=== PATIENT | female | born 1930 | race Caucasian/White ===

== ENCOUNTER 2017-10-21 07:26 | Inpatient (IN) | payer MEDICARE, BC ==
[2017-10-21 08:29] LABS: #Basophils 0.1 thou/uL (0.0-0.2); #Eosinphils 0.2 thou/uL (0.0-0.7); #Lymphocytes 1.4 thou/uL (1.20-3.40); #Monocytes 0.5 thou/uL (0.11-0.59); #Neutrophils 6.5 thou/uL (1.40-6.50); %Basophils 0.9 % (0.0-1.0); %Eosinophils 2.2 % (0.0-10.0); %Lymphocytes 16.1 % (21.0-51.0); Hematocrit 40.1 % (36.0-47.0); Mean Platelet Volume 7.3 fL (7.4-10.4); Red Blood Cell (RBC) Count 4.57 mill/uL (4.20-5.40); White Blood Cell (WBC) Count 8.7 thou/uL (4.8-10.8)
[2017-10-21 08:36] LABS: ALT (SGPT) 30 U/L (8-55); AST (SGOT) 40 U/L (5-34); Alkaline Phosphatase 86 U/L (40-150); Anion Gap 12 mmol/L (10-20); BUN (Urea Nitrogen) 17 mg/dL (9.8-20.1); Bilirubin, Total 0.6 mg/dL (0.2-1.2); Calc. Creatinine Clearance 0 mL/min (70-130); Calcium 9.4 mg/dL (7.8-10.44); Carbon Dioxide 25 mmol/L (23-31); Chloride 103 mmol/L (98-107); Estimated GFR-MDRD 78; PTT 30.9 SEC (22.9-36.1); Prothrombin Time 13.5 SEC (12.0-14.7)
[2017-10-21] MEDS ORDERED: Morphine 4 MG/ML VIAL ONE (08:53)
--- NOTE | 2017-10-21 09:00 | RAD ---
SINGLE VIEW OF THE CHEST: Comparison: 06-05-15 History: Fall this morning with right hip pain. FINDINGS: Single view of the chest shows a cardiomediastinal silhouette which is upper limits of normal in size with atherosclerotic calcifications seen in the aorta. There is no evidence of consolidation, mass, or pleural effusions. Degenerative changes are seen in the spine. IMPRESSION: 1. No evidence of acute cardiopulmonary disease. 2. Atherosclerotic disease. POS: JAYSHREE
--- NOTE | 2017-10-21 09:03 | RAD ---
TWO VIEWS RIGHT HIP: Comparison: Pelvic radiograph 10-21-17 History: Fall with right hip pain. FINDINGS: Two views right hip shows lucency through the intertrochanteric region of the right femur which may r epresent a nondisplaced intertrochanteric femur fracture. No degenerative change is seen in the right hip. IMPRESSION: Likely nondisplaced intertrochanteric right femur fracture. POS: JAYSHREE
[2017-10-21] MEDS ORDERED: Fentanyl 100 MCG/2 ML VIAL ONE ×3 (09:35→16:33)
[2017-10-21] MEDS ORDERED: Ondansetron HCl/PF 4 MG/2 ML Vial ONE ×2 (10:35→14:53)
[2017-10-21] MEDS ORDERED: Dextrose 50% Abboject 50 ML SYRINGE SLOW IVP PRN (11:43)
[2017-10-21] MEDS ORDERED: Ondansetron HCl/PF 4 MG/2 ML Vial IVP PRN ×2 (11:43→15:37)
[2017-10-21] MEDS ORDERED: hydrALAZINE 20 MG/ML VIAL SLOW IVP PRN (11:43)
[2017-10-21] MEDS ORDERED: Dextrose 5% in Water 1,000 ML IV PRN (11:43)
[2017-10-21] MEDS: Acetaminophen 1,000 MG in Premix Bag 1 BAG IVPB SCH ×2 (11:52→17:54)
[2017-10-21] MEDS: Sodium Chloride 0.9% 1,000 ML IV SCH ×2 (11:52→22:12)
--- NOTE | 2017-10-21 11:55 | HP ---
DATE OF CONSULTATION: 10/21/2017 ATTENDING: Raheem Bethea DO CONSULTING PHYSICIAN: Dr. Ta, Orthopedics. HISTORY OF PRESENT ILLNESS: Ms. Evans is a pleasant 87-year-old female who was transported to the ED this a.m. status post ground level fall. She reports that she was getting up to go to the bathroom and when attempting to get out of bed, she had a fall. She states that she has had right hip pain since the fall and has been unable to ambulate. Pain is somewhat relieved by morphine. Pain is exacerbated by movement. Currently, pain is rated at 8/10. Clinical and diagnostic evaluation in the ED identified right hip fracture. There is no nausea, vomiting, fever, chills, uncontrolled bleeding, or neurovascular compromise. PAST MEDICAL HISTORY: Hyperlipidemia, high blood pressure. PAST SURGICAL HISTORY: Hysterectomy. SOCIAL HISTORY: The patient denies alcohol, drug or tobacco use. She lives at home alone and is active, taking care of her household. HOME MEDICATIONS: 1. Tylenol with codeine. 2. Amlodipine 5 mg p.o. daily. 3. Nexium 40 mg p.o. daily. 4. Crestor 10 mg p.o. daily. 5. Tramadol 1-2 tabs 50 mg p.o. q.6 h. as needed. REVIEW OF SYSTEMS: CONSTITUTIONAL: Negative for fever, chills, weight loss, or weakness. HEENT: Negative. Denies changes. PULMONARY: Negative. Denies cough or shortness of breath. CARDIOVASCULAR: Negative. Denies chest pain or palpitations. GI: Negative. Denies abdominal pain, nausea, vomiting, diarrhea or constipation. MUSCULOSKELETAL: Reports pain in the right hip with movement. Denies neurovascular compromise. SKIN: Negative. Denies skin changes. NEUROLOGIC: Negative. Denies headache, seizures or sensory changes. PHYSICAL EXAMINATION: VITAL SIGNS: Blood pressure 131/51, pulse 62, respirations 18, O2 sat 92% on room air, temperature 97.6. Pain 8/10. GENERAL: An 87-year-old female, in no acute distress. HEENT: Normocephalic, atraumatic. LUNGS: Bilateral breath sounds clear to auscultation. No respiratory distress. CARDIOVASCULAR: Regular rate and rhythm. S1, S2. ABDOMEN: Soft, nontender, nondistended. EXTREMITIES: Pain with palpation to right hip. NEUROLOGIC: Cap refill brisk. Neurovascularly intact. LABORATORY DATA: White blood cells 8.7, hemoglobin 13.1, hematocrit 40.1, platelets 238. Chemistry: Sodium 136, potassium 3.7, chloride 103, carbon dioxide 25, anion gap 12, BUN 17, creatinine 0.71, glucose 148. Diagnostic imaging right intertrochanteric femur fracture. DIAGNOSTIC IMAGING: Right intertrochanteric hip fracture ASSESSMENT: 1. An 87-year-old female status post ground level fall. 2. Right intertrochanteric hip fracture. PLAN: 1. Admit to surgical floor by trauma services. 2. Consult to Dr. Ta, Orthopedics, I have discussed this with PA for Orthopedics. They will take patient to OR for stabilization of fracture later today. 3. N.p.o. IV fluids. IV analgesia. 4. Case management consult for discharge planning. Assessment and plan of care were discussed with the patient and her adult children. They are in agreement with assessment and recommendations. The patient was reviewed with Dr. Bethea, who agrees with assessment, and plan of care. [facility]
--- NOTE | 2017-10-21 13:00 | CON ---
DATE OF CONSULTATION: 10/21/2017 REQUESTING PHYSICIAN: Dr. Raheem Bethea CONSULTING PHYSICIAN: Dr. Trung Ta CHIEF COMPLAINT: Right hip intertrochanteric fracture. HISTORY OF PRESENT ILLNESS: Nikki is a very pleasant 87-year-old white female who was brought to [facility] via EMS after she fell at home. Plain radiographs obtained by Dr. Fausto zuniga in the emergency room demonstrated a right intertrochanteric varus angulated fracture. She is pat ng admitted by the Trauma Team and our service was consulted for evaluation and definitive management of this problem. PAST MEDICAL HISTORY: Significant for hypertension, hyperlipidemia. PAST SURGICAL HISTORY: She had an open reduction internal fixation of the ankle approximately 3 year s ago and the spine fracture treated closed. PHYSICAL EXAMINATION: GENERAL: This is a well-nourished, well-developed female appearing her stated age, in no apparent di stress or discomfort. VITAL SIGNS: Blood pressure is 144/71, respiration rate 18, O2 saturation is 95% on 2 liters of oxyg en, pulse 68, temperature 97.6. NEUROLOGIC: She is alert and oriented to person, place, time, and situation, responsive, and appropr iate with examiner, but is a little hard of hearing. She is grossly nonfocal. EXTREMITIES: Visual inspection of the right lower extremity demonstrates minimal shortening, but no significant gross deformity. There is not a severe amount of external rotation present. She is neur ovascularly intact in the right lower extremity. IMAGING STUDIES: Two views right hip and AP pelvis demonstrates a varus angulated, shortened slightl y intertrochanteric fracture 2 part in nature. IMPRESSION: 1. Two-part varus angulated right hip intertrochanteric fracture. 2. Advanced age. 3. Hypertension. 4. Hyperlipidemia. PLAN: 1. The risks, benefits, options, alternatives, and rationale for proceeding with closed versus open reduction with internal fixation has been explained in great detail with the patient and her family w donnie accompanies her. All questions were answered. No guarantee of outcome has been stated or implied . 2. Please see orders.
[2017-10-21] MEDS ORDERED: Clindamycin/D5W 900 mg/50 ml Premix Bag ONE (14:08)
[2017-10-21] MEDS ORDERED: Levofloxacin 500 mg/D5W 100 ml Premix Bag ONE (14:08)
[2017-10-21] MEDS ORDERED: Lidocaine 1% PF 5 ML VIAL ONE (14:53)
[2017-10-21] MEDS ORDERED: Propofol 200 MG/20 ML VIAL ONE (14:53)
[2017-10-21] MEDS ORDERED: Glycopyrrolate 0.2 MG/ML 5 ML SYRINGE ONE (14:53)
[2017-10-21] MEDS ORDERED: ePHEDrine/0.9% NaCl/PF SYRINGE 50 mg/10 ml ONE (14:53)
[2017-10-21] MEDS ORDERED: Promethazine HCl 25 MG/ML VIAL SLOW IVP PRN (15:37)
--- NOTE | 2017-10-21 16:51 | RAD ---
TWO INTRAOPERATIVE FLUOROSCOPIC IMAGES RIGHT HIP: Date: 10-21-17 History: Internal fixation of proximal femur. Comparison: 10-21-17 FINDINGS: Two intraoperative fluoroscopic images from the OR are submitted for interpretation. There is an intr amedullary dejuan within dynamical compression screw and interlocking screw transfixing the intertrochan teric right hip fracture. No hardware complication is seen. IMPRESSION: Internal fixation of right intertrochanteric hip fracture. POS: JAYSHREE
--- NOTE | 2017-10-21 17:56 | OP ---
DATE OF PROCEDURE: 10/21/2017 OPERATION: Right femur intramedullary nail. PREOPERATIVE DIAGNOSIS: Right intertrochanteric femur fracture. POSTOPERATIVE DIAGNOSIS: Right intertrochanteric femur fracture. COMPLICATIONS: None. ESTIMATED BLOOD LOSS: Minimal. SURGEON: Trung Ta M.D. ANESTHESIA: General. CUFFER: Shilo Laureano PA-C IMPLANTS: Synthes short trochanteric nail, 11 mm with helical blade. INDICATIONS: Ms. Evans is an 87-year-old female who has fallen. She fractured her right hip. She was indicated for intramedullary nail fixation of the intertrochanteric femur. She has elected to pr oceed with the operation. Risks have been reviewed with her and her family. DESCRIPTION OF PROCEDURE: Ms. Evans was identified in the preoperative holding area. Her correct e xtremity was marked. She was carried to the operating room. She was positioned supine. General ane sthesia was induced. A multidisciplinary timeout was performed. The right lower extremity was prepp ed and draped in sterile fashion. We began the procedure with a small incision proximal to the trochanter. We then inserted the guidew philippe at the tip of the trochanter distally. We guided this with x-ray. We then opened the proximal f emur with our reamer. Next, we inserted our intramedullary nail device. At this point, we placed a guidewire in the centered position of the femoral head. We then overdrilled this and impacted the he lical blade. Finally, we placed a distal cross lock screw. This concluded the operation. We took f inal images. We thoroughly irrigated the wounds and closed appropriately. A sterile dressing was ap plied. The patient was taken to the recovery room in good condition without complication.
--- NOTE | 2017-10-21 18:19 | RAD ---
SINGLE VIEW OF THE PELVIS: History: Fall with right hip pain. FINDINGS: Single view of the pelvis shows lucency extending to the right intertrochanteric region of the femur which likely represents a nondisplaced fracture. No degenerative change is seen in either hip. IMPRESSION: Intertrochanteric right femur fracture. POS: JAYSHREE
[2017-10-21] MEDS: Famotidine/PF 20 mg/2ml Vial SLOW IVP SCH (22:00)
[2017-10-21] MEDS: Vancomycin HCl 1 GM in Premix Bag 1 BAG IVPB SCH (22:00)
[2017-10-21] MEDS: Mupirocin 2% Ointment 22 GM Tube TOP SCH (22:00)
[2017-10-21] MEDS ORDERED: traMADol HCl 50 MG TAB PO PRN (22:10)
[2017-10-21] MEDS: Clindamycin/D5W 900 MG in Premix Bag 1 BAG IVPB SCH (22:18)
[2017-10-21] MEDS ORDERED: Acetaminophen 500 MG TAB PO SCH (22:30)
[2017-10-21] MEDS ORDERED: Gabapentin 100 MG CAP PO SCH (22:30)
[2017-10-21] MEDS: Cyclobenzaprine 10 MG TAB PO PRN (22:30)
[2017-10-21] MEDS ORDERED: Ketorolac Tromethamine 30 MG/ML VIAL IVP SCH (23:00)
[2017-10-22] MEDS: Sodium Chloride 0.9% 1,000 ML IV SCH ×2 (03:19→15:00)
[2017-10-22] MEDS: Acetaminophen 500 MG TAB PO SCH ×4 (04:15→22:25)
[2017-10-22] MEDS: Ketorolac Tromethamine 30 MG/ML VIAL IVP SCH ×4 (04:16→22:26)
[2017-10-22] MEDS: traMADol HCl 50 MG TAB PO PRN ×2 (04:17→13:34)
[2017-10-22] MEDS: Clindamycin/D5W 900 MG in Premix Bag 1 BAG IVPB SCH (05:42)
[2017-10-22 05:48] LABS: #Lymphocytes 0.8 thou/uL (1.20-3.40); #Monocytes 0.6 thou/uL (0.11-0.59); #Neutrophils 3.8 thou/uL (1.40-6.50); %Basophils 0.2 % (0.0-1.0); %Eosinophils 0.9 % (0.0-10.0); %Lymphocytes 15.9 % (21.0-51.0); Hematocrit 32.1 % (36.0-47.0); Mean Platelet Volume 7.6 fL (7.4-10.4); Red Blood Cell (RBC) Count 3.61 mill/uL (4.20-5.40); White Blood Cell (WBC) Count 5.3 thou/uL (4.8-10.8)
[2017-10-22] MEDS ORDERED: FLU VACC TS2017-18 (>65YR) 0.5 ML SYRINGE IM ONE (09:00)
[2017-10-22] MEDS: Famotidine/PF 20 mg/2ml Vial SLOW IVP SCH ×2 (09:27→21:27)
[2017-10-22] MEDS: Mupirocin 2% Ointment 22 GM Tube TOP SCH ×2 (09:28→21:45)
[2017-10-22] MEDS: Gabapentin 100 MG CAP PO SCH ×3 (09:28→21:27)
[2017-10-22] MEDS: Vancomycin HCl 1 GM in Premix Bag 1 BAG IVPB SCH (09:30)
--- NOTE | 2017-10-22 11:24 | PRG-2 ---
DATE OF SERVICE: 10/22/2017 SUBJECTIVE: Nikki Evans is an 87-year-old woman status post ground level fall and right intertroch anteric femur fracture who is postoperative day #2 for intramedullary nail fixation of an intertrocha nteric femur. The patient tolerated the procedure well yesterday. She had no acute events overnight . She states that her pain is well controlled this morning. PHYSICAL EXAMINATION: VITAL SIGNS: Temperature 98.5, pulse 70, respiratory rate 14, O2 sat 96%, blood pressure 119/96. GENERAL: An 87-year-old female in no acute distress. HEENT: Normocephalic, atraumatic. LUNGS: Clear to auscultation bilaterally. Normal respiratory effort. CARDIOVASCULAR: Regular rate and rhythm, S1 and S2. ABDOMEN: Soft, nontender, nondistended. EXTREMITIES: Pain with palpation of the right hip. NEUROLOGIC: Neurovascularly intact x4. LABORATORY DATA: White blood cell count 5.3, hemoglobin 10.8, hematocrit 32.1, platelets 166. ASSESSMENT: 1. An 87-year-old woman status post ground level fall. 2. Right intertrochanteric hip fracture. PLAN: Rehab screen ordered for today and case management on board for discharge planning. Continue pain management, switch to p.o. analgesia. Continue deep venous thrombosis and gastritis prophylaxis . No other change in management at this time. Assessment and plan was discussed with attending trauma surgeon, Dr. Boateng, on morning rounds.
[2017-10-22] MEDS: Enoxaparin Sodium 40 MG/0.4 ML SYRINGE SC SCH (21:27)
[2017-10-23] MEDS: Acetaminophen 500 MG TAB PO SCH ×3 (05:58→18:20)
[2017-10-23] MEDS: Ketorolac Tromethamine 30 MG/ML VIAL IVP SCH (05:59)
[2017-10-23] MEDS: Amlodipine 10 MG TAB PO SCH (09:27)
[2017-10-23] MEDS: Gabapentin 100 MG CAP PO SCH ×3 (09:27→20:24)
[2017-10-23] MEDS: Famotidine/PF 20 mg/2ml Vial SLOW IVP SCH (09:27)
[2017-10-23] MEDS: Mupirocin 2% Ointment 22 GM Tube TOP SCH ×2 (09:28→20:29)
--- NOTE | 2017-10-23 15:22 | PRG ---
DATE OF SERVICE: 10/23/2017 SUBJECTIVE: Nikki Evans is an 87-year-old woman status post ground level fall and right intertroch anteric femur fracture. She is postop day #2 from ORIF of femur fracture. She has had no postoperat indio complications. She has been mobilizing with physical and occupational therapy. OBJECTIVE: VITAL SIGNS: Temperature 98.2, pulse 80, respirations 20, O2 sat 95% on room air, and blood pressure 153/70. GENERAL: An 87-year-old female in no acute distress. Pain well controlled. HEENT: Normocephalic, atraumatic. LUNGS: Bilateral breath sounds, clear to auscultation. No respiratory distress. CARDIOVASCULAR: Regular rate and rhythm. Heart sounds normal. ABDOMEN: Soft, nontender, nondistended. EXTREMITIES: Moves all extremities well. Neurovascularly intact. Cap refill brisk. Pain with move ment of the right hip. Pain is well controlled. ASSESSMENT: 1. An 87-year-old woman status post ground level fall. 2. Right intertrochanteric hip fracture. 3. Status post open reduction and internal fixation right hip fracture. PLAN: 1. Continue current care as ordered. 2. Continue physical and occupational therapy for mobilization. 3. Case management consult for discharge planning. The patient expressed her wishes to go to [facility] in [place], [place]. 4. Deep venous thrombosis prophylaxis, Lovenox 40 mg once daily. 5. The patient was discussed and reviewed with the attending trauma surgeon, Dr. Sanders.
[2017-10-23] MEDS: Cyclobenzaprine 10 MG TAB PO PRN (20:25)
[2017-10-23] MEDS: Enoxaparin Sodium 40 MG/0.4 ML SYRINGE SC SCH (20:35)
[2017-10-23] MEDS ORDERED: hydrOXYzine 10 MG TAB PO PRN (20:58)
[2017-10-23] MEDS: Famotidine 20 MG TAB PO SCH (21:21)
[2017-10-23] MEDS ORDERED: hydrOXYzine 25 MG TAB PO PRN (21:31)
[2017-10-24] MEDS: Acetaminophen 500 MG TAB PO SCH ×4 (00:31→17:03)
[2017-10-24] MEDS ORDERED: Ondansetron ODT 4 MG TAB PO PRN (03:26)
[2017-10-24] MEDS: Gabapentin 100 MG CAP PO SCH ×3 (08:47→21:28)
[2017-10-24] MEDS: Mupirocin 2% Ointment 22 GM Tube TOP SCH ×2 (08:47→21:05)
[2017-10-24] MEDS: Famotidine 20 MG TAB PO SCH ×2 (08:47→21:28)
[2017-10-24] MEDS: Amlodipine 10 MG TAB PO SCH (08:47)
--- NOTE | 2017-10-24 12:44 | PRG ---
DATE OF SERVICE: 10/24/2017 This is Cheryl Omalley, Nurse Practitioner, dictating daily progress note for Dr. Sanders SUBJECTIVE: Ms. Evans is an 87-year-old female status post ground-level fall and right intertrochanteric femur fracture. She is postop day #3 from ORIF. She has had no postoperative complications. She has been mobilizing with physical and occupational therapy. OBJECTIVE: VITAL SIGNS: Temperature 98.7, pulse 89, respirations 14, O2 sat 92%, blood pressure 150/76. GENERAL: An 87-year-old female in no acute distress. HEENT: Normocephalic, atraumatic. LUNGS: Bilateral breath sounds, clear to auscultation. No respiratory distress. CARDIOVASCULAR: Regular rate and rhythm. Heart sounds normal. ABDOMEN: Soft, nontender, nondistended. EXTREMITIES: Moves all extremities well. Neurovascularly intact. Cap refill brisk. ASSESSMENT: 1. An 87-year-old female status post ground-level fall. 2. Right intertrochanteric hip fracture. 3. Status post open reduction internal fixation, right hip fracture. PLAN: 1. Continue physical and occupational therapy for mobilization. 2. Lovenox 40 mg once daily for DVT prophylaxis. The patient will need Lovenox x3 weeks per discussion with Dr. Carrasco. 3. Case management following for discharge planning. Plan for patient to discharge to SNF in [place] on 10/26/2017. Patient was reviewed with Dr. Sanders, attending surgeon, who agrees with the assessment and plan. [facility]
[2017-10-24] MEDS: Ibuprofen 600 MG TAB PO SCH (15:01)
[2017-10-24] MEDS: Enoxaparin Sodium 40 MG/0.4 ML SYRINGE SC SCH (21:05)
[2017-10-25] MEDS: Acetaminophen 500 MG TAB PO SCH ×4 (01:35→17:57)
[2017-10-25] MEDS: Ibuprofen 600 MG TAB PO SCH ×3 (01:35→15:05)
[2017-10-25] MEDS: Amlodipine 10 MG TAB PO SCH (08:57)
[2017-10-25] MEDS: Mupirocin 2% Ointment 22 GM Tube TOP SCH ×2 (08:57→20:43)
[2017-10-25] MEDS: Gabapentin 100 MG CAP PO SCH ×3 (08:57→20:42)
[2017-10-25] MEDS: Famotidine 20 MG TAB PO SCH ×2 (08:57→20:42)
--- NOTE | 2017-10-25 13:45 | PRG ---
DATE OF SERVICE: 10/25/2017 ATTENDING PHYSICIAN: Dr. Sanders. SUBJECTIVE: Ms. Evans is an 87-year-old female status post ground level fall and right intertrochanteric femur fracture. She is postop day #4 from ORIF. She has had no postoperative complications. She has been mobilizing with physical and occupational therapy. She reports today that pain is much more controlled. OBJECTIVE: VITAL SIGNS: Temperature 98.5, pulse 83, respirations 18, O2 sat 93% on 1 liter O2, blood pressure 151/77. GENERAL: An 87-year-old female in no acute distress, sitting up in bed, eating breakfast. HEENT: Normocephalic, atraumatic. LUNGS: Bilateral breath sounds clear to auscultation. No respiratory distress. CARDIOVASCULAR: Regular rate and rhythm. Heart sounds normal. ABDOMEN: Soft, nontender, and nondistended. EXTREMITIES: Moves all extremities well. Neurovascularly intact. Cap refill is brisk. ASSESSMENT: 1. An 87-year-old female status post ground level fall. 2. Traumatic intertrochanteric hip fracture. 3. Status post open reduction and internal fixation of right hip fracture. PLAN: 1. Continue physical and occupational therapies for mobilization. 2. Continue Lovenox 40 mg once daily for DVT prophylaxis. The patient will need Lovenox for 3 weeks [address] discussion [address] Dr. Carrasco. 3. Case management following for discharge planning. Plan to discharge to SNF at [place] on Thursday10/26/2017, pending acceptance. Patient was reviewed with Dr. Sanders, who agrees with the assessment and plan. [facility]
--- NOTE | 2017-10-25 13:57 | PRG ---
DATE OF SERVICE: 10/25/2017 An 87-year-old male status post open reduction internal fixation, right intertrochanteric femur fract ure. The patient's vital signs remained stable. Agree with exam per nurse woodrow Frank He is on Lovenox for DVT prophylaxis, awaiting placement post-ORIF hip fracture.
[2017-10-25] MEDS ORDERED: Polyethylene Glycol 3350 17 GM Packet PO SCH (18:30)
[2017-10-25] MEDS ORDERED: Bisacodyl 10 MG SUPP PR SCH (19:30)
[2017-10-25] MEDS: Senokot S 8.6-50 MG TAB PO SCH (20:42)
[2017-10-25] MEDS: Enoxaparin Sodium 40 MG/0.4 ML SYRINGE SC SCH (20:43)
[2017-10-26] MEDS: Ibuprofen 600 MG TAB PO SCH ×2 (00:13→06:00)
[2017-10-26] MEDS: Acetaminophen 500 MG TAB PO SCH ×3 (00:13→11:47)
[2017-10-26] MEDS ORDERED: Polyethylene Glycol 3350 17 GM Packet PO SCH (09:00)
[2017-10-26] MEDS: Amlodipine 10 MG TAB PO SCH (09:55)
[2017-10-26] MEDS: Gabapentin 100 MG CAP PO SCH (09:55)
[2017-10-26] MEDS: Famotidine 20 MG TAB PO SCH (09:56)
[2017-10-26] MEDS: Mupirocin 2% Ointment 22 GM Tube TOP SCH (10:00)
[2017-10-26] MEDS: Senokot S 8.6-50 MG TAB PO SCH (10:23)
[2017-10-26 12:36] VITALS: BP 138/69; TEMP 98.6
--- NOTE | 2017-10-27 00:20 | DIS ---
DATE OF ADMISSION: 10/21/2017 DATE OF DISCHARGE: 10/26/2017 ADMITTING PHYSICIAN: Raheem Bethea DO CONSULTING PHYSICIAN: Dr. Ta, Orthopedics. CHIEF COMPLAINT: Ground level fall with hip pain. HOSPITAL DIAGNOSIS: Right intertrochanteric hip fracture. DATE OF PROCEDURE: 10/21/2017 OPERATION: Right femur intramedullary nail. SURGEON: Trung Ta M.D. PATIENT'S DISCHARGE CONDITION: Stable to senior living facility. FOLLOWUP: The patient is to follow up with Dr. Carrasco. She is to call for appointment. BRIEF SUMMARY OF HOSPITALIZATION: Ms. Evans is an 87-year-old female who was transported to the ED on 10/21/2017 after a ground level fall. She was seen in the ER, where a right intertrochanteric hip fracture was identified. She was admitted to the hospital by Trauma Services. Orthopedics was cons ulted. She was taken to the operating room by Dr. Ta for ORIF. She had no postoperative comp lications. She was able to mobilize with physical and occupational therapy who recommended rehabilit ation at discharge. Case management was consulted and referrals were made. The patient was accepted to [facility] in [place], [place]. She was discharged on 10/26/2017 with disc harge instructions and followup information. The patient was reviewed with Dr. Boateng, attending surgeon, who agreed with the assessment and plan for discharge.
== END 2017-10-26 14:15 | DRG 482 ==
LOC: ERS 07:26 → SURG B 10:58
PROVIDERS: ADMIT Surgery; ATTEND Surgery
PROC: 0QS606Z Reposition Right Upper Femur with Intramedullary Internal Fixation Device, Open Approach (ICD-10-PCS; principal; 2017-10-21)
DX: S72.141A Displaced intertrochanteric fracture of right femur, initial encounter for closed fracture (principal); I10 Essential (primary) hypertension; E78.5 Hyperlipidemia, unspecified; W06.XXXA Fall from bed, initial encounter; Y92.003 Bedroom of unspecified non-institutional (private) residence as the place of occurrence of the external cause
CPT/HCPCS: 36415; 36416; 51702; 71010; 72170; 76001; 80053; 85025; 85610; 85730; 86850; 86900; 86901; 96374; 96375; C1713; G0390; G8978-GP-CJ; G8979-GP-CH; G8987-GO-CK; G8988-GO-CI; J0131; J1650; J1885; J1956; J2001; J2270; J2405; J2704; J3010; J3370; J3490; Q0162; S0028

== ENCOUNTER 2021-07-03 10:05 | Inpatient (IN) | payer MEDICARE, BC ==
[~2021-07-03 10:05] MED LIST: Iopamidol-370 76% 500 ML 1 ML ONE
[2021-07-03 11:08] LABS: #Lymphocytes 1.1 thou/uL (1.20-3.40); #Monocytes 0.7 thou/uL (0.11-0.59); #Neutrophils 11.4 thou/uL (1.40-6.50); %Basophils 0.1 % (0.0-1.0); %Eosinophils 0.1 % (0.0-10.0); %Lymphocytes 8.5 % (21.0-51.0); %Monocytes 5.5 % (0.0-10.0); %Neutrophils 85.7 % (42.0-75.0); Hemoglobin 12.8 g/dL (12.0-16.0); Mean Corpuscular HGB CONC 33.5 g/dL (32.0-36.0); Mean Corpuscular Hemoglobin 28.1 pg (27.0-31.0); Mean Corpuscular Volume 83.7 fL (78.0-98.0); Mean Platelet Volume 8.5 fL (7.4-10.4); Platelet Count 203 thou/uL (130-400); RBC Distribution Width 13.4 % (11.5-14.5); Red Blood Cell (RBC) Count 4.55 mill/uL (4.20-5.40); White Blood Cell (WBC) Count 13.4 thou/uL (4.8-10.8)
[2021-07-03] MEDS ORDERED: Ondansetron PF 4 MG/2 ML Vial ONE ×2 (11:12→11:18)
[2021-07-03] MEDS ORDERED: cefTRIAXone\\ROCEPHIN 2 GM VIAL ONE (11:23)
[2021-07-03 12:14] LABS: Bacteria/HPF None Seen HPF (None Seen); Bilirubin Negative (Negative); Blood, Urine Negative (Negative); Clarity Clear (Clear); Glucose, Urine (Dipstick) Normal (Negative); Ketone, Urine Trace mg/dL (Negative); Leukocyte 75 Leu/uL (Negative); Nitrite Negative (Negative); Protein, Urine (Dipstick) Negative (Neg-Trace); RBC/HPF 0-3 HPF (0-3); Specific Gravity, Urine 1.017 (1.002-1.036); Squamous Epithelial 0-3 HPF (0-3); Urobilinogen Normal mg/dL (Less than 2); WBC/HPF 0-3 HPF (0-3)
[2021-07-03 12:18] LABS: ALT (SGPT) 21 U/L (8-55); AST (SGOT) 23 U/L (5-34); Albumin 3.7 g/dL (3.4-4.8); Alkaline Phosphatase 154 U/L (40-110); Anion Gap 16 mmol/L (10-20); BUN (Urea Nitrogen) 11 mg/dL (9.8-20.1); Bilirubin, Total 0.9 mg/dL (0.2-1.2); Calc. Creatinine Clearance 0 mL/min (70-130); Calcium 8.5 mg/dL (7.8-10.44); Carbon Dioxide 19 mmol/L (23-31); Chloride 108 mmol/L (98-107); Globulin 2.9 g/dL (2.4-3.5); Glucose 110 mg/dL (83-110); Protein, Total 6.6 g/dL (5.8-8.1); Sodium 139 mmol/L (136-145)
[2021-07-03 13:10] LABS: SARS-CoV-2 NAA Rapid Test Not Detected (NotDetected)
[2021-07-03] MEDS ORDERED: Benzonatate 100 MG CAP PO PRN (13:15)
[2021-07-03] MEDS ORDERED: Azithromycin 500 MG VIAL ONE (13:19)
[2021-07-03] MEDS ORDERED: Ondansetron ODT 4 MG TAB PO PRN (13:20)
[2021-07-03] MEDS ORDERED: Loperamide HCl 2 MG CAP PO PRN (13:20)
[2021-07-03 15:23] LABS: Magnesium 1.4 mg/dL (1.6-2.6)
[2021-07-03] MEDS ORDERED: Magnesium Sulfate 4 GM in Sodium Chloride 0.9% 250 ML 250 ML IVPB SCH (16:00)
[2021-07-03 16:13] LABS: Legionella Urinary Ag Negative (Negative); Strep pneumo Urine Ag NEGATIVE (NEGATIVE)
[2021-07-03] MEDS: Sodium Chloride 0.9% 1,000 ML IV SCH (19:40)
[2021-07-03 19:53] VITALS: BMI 27.1
[2021-07-03] MEDS: Melatonin 3 MG TAB PO PRN (21:27)
[2021-07-04] MEDS: Sodium Chloride 0.9% 1,000 ML IV SCH ×4 (04:46→20:32)
[2021-07-04 07:23] LABS: #Eosinphils 0.2 thou/uL (0.0-0.7); #Lymphocytes 1.9 thou/uL (1.20-3.40); #Monocytes 0.8 thou/uL (0.11-0.59); #Neutrophils 4.7 thou/uL (1.40-6.50); %Basophils 0.5 % (0.0-1.0); %Eosinophils 2.4 % (0.0-10.0); %Lymphocytes 25.1 % (21.0-51.0); %Monocytes 9.8 % (0.0-10.0); %Neutrophils 62.2 % (42.0-75.0); Hemoglobin 12.2 g/dL (12.0-16.0); Mean Corpuscular Hemoglobin 27.9 pg (27.0-31.0); Mean Corpuscular Volume 84.7 fL (78.0-98.0); Mean Platelet Volume 8.8 fL (7.4-10.4); Platelet Count 212 thou/uL (130-400); RBC Distribution Width 13.4 % (11.5-14.5); Red Blood Cell (RBC) Count 4.36 mill/uL (4.20-5.40); White Blood Cell (WBC) Count 7.6 thou/uL (4.8-10.8)
[2021-07-04 07:34] LABS: Anion Gap 11 mmol/L (10-20); BUN (Urea Nitrogen) 7 mg/dL (9.8-20.1); Calc. Creatinine Clearance 61 mL/min (70-130); Carbon Dioxide 25 mmol/L (23-31); Chloride 107 mmol/L (98-107); Glucose 96 mg/dL (83-110); Magnesium 2.1 mg/dL (1.6-2.6); Potassium 3.5 mmol/L (3.5-5.1); Sodium 139 mmol/L (136-145)
[2021-07-04] MEDS: Enoxaparin Sodium 40 MG/0.4 ML SYRINGE SC SCH (10:08)
[2021-07-04] MEDS: cefTRIAXone\\ROCEPHIN 1 GM in Sodium Chloride 0.9% 100 ML IVPB SCH (13:02)
[2021-07-04] MEDS: Azithromycin 500 MG in Sodium Chloride 0.9% 250 ML 250 ML IVPB SCH (16:57)
[2021-07-04] MEDS: Melatonin 3 MG TAB PO PRN (20:52)
[2021-07-05] MEDS: Sodium Chloride 0.9% 1,000 ML IV SCH ×2 (04:53→16:48)
[2021-07-05 07:07] LABS: #Eosinphils 0.2 thou/uL (0.0-0.7); #Lymphocytes 1.7 thou/uL (1.20-3.40); #Monocytes 0.6 thou/uL (0.11-0.59); #Neutrophils 4.8 thou/uL (1.40-6.50); %Basophils 0.4 % (0.0-1.0); %Eosinophils 2.5 % (0.0-10.0); %Lymphocytes 22.7 % (21.0-51.0); %Monocytes 8.8 % (0.0-10.0); %Neutrophils 65.6 % (42.0-75.0); Mean Corpuscular HGB CONC 32.6 g/dL (32.0-36.0); Mean Corpuscular Hemoglobin 27.7 pg (27.0-31.0); Mean Platelet Volume 9.1 fL (7.4-10.4); Platelet Count 227 thou/uL (130-400); RBC Distribution Width 13.3 % (11.5-14.5); Red Blood Cell (RBC) Count 4.68 mill/uL (4.20-5.40); White Blood Cell (WBC) Count 7.3 thou/uL (4.8-10.8)
[2021-07-05 07:30] LABS: ALT (SGPT) 13 U/L (8-55); AST (SGOT) 12 U/L (5-34); Albumin 3.3 g/dL (3.4-4.8); Alkaline Phosphatase 125 U/L (40-110); Anion Gap 11 mmol/L (10-20); BUN (Urea Nitrogen) 4 mg/dL (9.8-20.1); Bilirubin, Total 0.6 mg/dL (0.2-1.2); Calc. Creatinine Clearance 60 mL/min (70-130); Calcium 8.4 mg/dL (7.8-10.44); Carbon Dioxide 27 mmol/L (23-31); Chloride 106 mmol/L (98-107); Globulin 2.8 g/dL (2.4-3.5); Glucose 92 mg/dL (83-110); Potassium 3.1 mmol/L (3.5-5.1); Protein, Total 6.1 g/dL (5.8-8.1); Sodium 141 mmol/L (136-145)
[2021-07-05] MEDS: cefTRIAXone\\ROCEPHIN 1 GM in Sodium Chloride 0.9% 100 ML IVPB SCH (11:43)
[2021-07-05] MEDS ORDERED: Iothalamate Meglumine 60% 50 ML VIAL FS ONE (12:31)
[2021-07-05] MEDS ORDERED: Indomethacin 50 MG SUPP ONE (12:34)
[2021-07-05] MEDS ORDERED: Fentanyl 100 MCG/2 ML VIAL ONE (13:01)
[2021-07-05] MEDS ORDERED: PROPOFOL 200 MG/20 ML VIAL ONE (13:11)
[2021-07-05] MEDS ORDERED: Esmolol 100 MG/10 ML VIAL ONE (13:11)
[2021-07-05] MEDS ORDERED: Succinylcholine 200 MG/10 ml SYRINGE FS ONE (13:11)
[2021-07-05] MEDS ORDERED: Dexamethasone 20 MG/5 ML VIAL ONE (13:11)
[2021-07-05] MEDS ORDERED: Lidocaine 1% PF 5 ML VIAL ONE (13:11)
[2021-07-05] MEDS ORDERED: ePHEDrine 50 MG/ML VIAL ONE (13:11)
[2021-07-05] MEDS ORDERED: Rocuronium Bromide 10 MG/ML (10ML VIAL) ONE (13:11)
[2021-07-05] MEDS ORDERED: Ondansetron PF 4 MG/2 ML Vial ONE (13:11)
[2021-07-05] MEDS ORDERED: Ondansetron HCl/PF 4 MG/2 ML Vial IVP PRN (13:59)
[2021-07-05] MEDS ORDERED: Promethazine HCl 25 MG/ML VIAL IVPB PRN (13:59)
[2021-07-05] MEDS ORDERED: Promethazine HCl 25 MG/ML VIAL IM PRN (13:59)
[2021-07-05] MEDS: Azithromycin 500 MG in Sodium Chloride 0.9% 250 ML 250 ML IVPB SCH (15:16)
[2021-07-05] MEDS: Enoxaparin Sodium 40 MG/0.4 ML SYRINGE SC SCH (15:17)
[2021-07-05] MEDS: Melatonin 3 MG TAB PO PRN (22:16)
[2021-07-06] MEDS: Sodium Chloride 0.9% 1,000 ML IV SCH ×2 (02:33→12:06)
[2021-07-06 05:25] LABS: #Monocytes 0.2 thou/uL (0.11-0.59); #Neutrophils 2.8 thou/uL (1.40-6.50); %Basophils 0.9 % (0.0-1.0); %Eosinophils 0.1 % (0.0-10.0); %Lymphocytes 24.5 % (21.0-51.0); %Monocytes 4.6 % (0.0-10.0); Hemoglobin 12.1 g/dL (12.0-16.0); Mean Corpuscular HGB CONC 34.8 g/dL (32.0-36.0); Mean Corpuscular Hemoglobin 29.4 pg (27.0-31.0); Mean Corpuscular Volume 84.7 fL (78.0-98.0); Mean Platelet Volume 8.6 fL (7.4-10.4); Platelet Count 242 thou/uL (130-400)
[2021-07-06 05:59] LABS: ALT (SGPT) 10 U/L (8-55); AST (SGOT) 12 U/L (5-34); Alkaline Phosphatase 107 U/L (40-110); Anion Gap 13 mmol/L (10-20); BUN (Urea Nitrogen) 9 mg/dL (9.8-20.1); Bilirubin, Total 0.4 mg/dL (0.2-1.2); Calc. Creatinine Clearance 54 mL/min (70-130); Calcium 8.1 mg/dL (7.8-10.44); Carbon Dioxide 23 mmol/L (23-31); Chloride 105 mmol/L (98-107); Globulin 2.6 g/dL (2.4-3.5); Glucose 118 mg/dL (83-110); Potassium 3.6 mmol/L (3.5-5.1); Protein, Total 5.6 g/dL (5.8-8.1); Sodium 137 mmol/L (136-145)
[2021-07-06] MEDS: Enoxaparin Sodium 40 MG/0.4 ML SYRINGE SC SCH (08:17)
[2021-07-06] MEDS: cefTRIAXone\\ROCEPHIN 1 GM in Sodium Chloride 0.9% 100 ML IVPB SCH (12:06)
[2021-07-06 12:07] VITALS: BP 140/67; TEMP 98.4
[2021-07-06] MEDS ORDERED: hydrOXYzine 25 MG TAB PO SCH (21:00)
[2021-07-09 05:13] LABS: Norovirus GI Negative (Negative); Norovirus GII Negative (Negative)
== END 2021-07-06 12:20 | disposition home or self-care (01) | DRG 444 ==
LOC: ERS 10:05 → ERHOLD 12:20 → T4-A 19:01 → OBSVTOIN 07-05 10:20
PROVIDERS: ADMIT Internal Medicine; ATTEND Internal Medicine
PROC: 0F798ZZ Dilation of Common Bile Duct, Via Natural or Artificial Opening Endoscopic (ICD-10-PCS; principal; 2021-07-05)
DX: K80.51 Calculus of bile duct without cholangitis or cholecystitis with obstruction (principal); J18.9 Pneumonia, unspecified organism; E87.2 Acidosis; I10 Essential (primary) hypertension; E78.5 Hyperlipidemia, unspecified; K83.8 Other specified diseases of biliary tract; K21.9 Gastro-esophageal reflux disease without esophagitis; F41.9 Anxiety disorder, unspecified; F32.9 Major depressive disorder, single episode, unspecified; Z20.822 Contact with and (suspected) exposure to COVID-19; Z88.0 Allergy status to penicillin; Z88.8 Allergy status to other drugs, medicaments and biological substances; Z79.899 Other long term (current) drug therapy; Z98.890 Other specified postprocedural states; Z87.891 Personal history of nicotine dependence
CPT/HCPCS: 0240U; 36415; 36416; 71045; 74177; 74183; 74330; 80048; 80053; 81003; 81015; 83605; 83630; 83690; 83735; 85025; 87040; 87045; 87046; 87086; 87427; 87449; 87798; 87899; 93005; 94760; 96365; 96366; 96367; 96372; 96375; 96376; G0378; J0456; J0696; J1100; J1650; J2405; J2704; J3010; J3490; J7050; Q9961; Q9967